=== PATIENT | male | born 1960 | race African-American/Black ===

== ENCOUNTER 2018-09-01 11:41 | Inpatient (IN) | payer MEDICARE ==
[~2018-09-01] VITALS: Ht 177.8 cm; Wt 78.5 kg
[2018-09-01] MEDS ORDERED: MORPHINE SULFATE 4 MG/ML CPJ (NOT FOR IM USE) IV STA (12:03)
[2018-09-01] MEDS ORDERED: ONDANSETRON HCL 4MG/2ML INJ IV STA (12:03)
[2018-09-01 12:30] LABS: BASOPHILS % 0.3 % (0.0-2.0); EOSINOPHILS % 0.1 % (0.0-5.0); HEMATOCRIT. 46.1 % (42.0-52.0); HEMOGLOBIN. 15.4 g/dL (14.0-18.0); LYMPHOCYTES % 22.8 % (20.0-50.0); MEAN CORPUSCULAR HEMOGLOBIN 27.3 pg (28.0-32.0); MEAN PLATELET VOLUME 8.9 fl (7.4-10.4); MONOCYTES % 12.7 % (2.0-8.0); NEUTROPHILS % 64.1 % (40.0-76.0); PLATELET 222 x1000/uL (130-400); RED BLOOD CELL COUNT 5.62 mill/uL (4.7-6.1); RED CELL DISTRIBUTION WIDTH 15.8 % (11.6-14.6)
[2018-09-01 12:37] LABS: CHLORIDE 95 mEq/L (98-107)
[2018-09-01 12:38] LABS: PROTHROMBIN TIME 10.6 sec (9.6-11.0)
[2018-09-01] MEDS ORDERED: PANTOPRAZOLE SODIUM 40 MG/VIAL IV ONE (14:00)
[2018-09-01] MEDS ORDERED: SODIUM CHLORIDE 0.9% 1,000 ML IV ONE (16:03)
[2018-09-01] MEDS ORDERED: DIATR MEGLU/DIATRIZOATE SOLN 30ML ONE (17:13)
[2018-09-01] MEDS ORDERED: DOCUSATE SODIUM 100MG CAPSULE PO PRN (17:30)
[2018-09-01] MEDS ORDERED: DIPHENHYDRAMINE 50MG/ML VIAL IV PRN (17:30)
[2018-09-01] MEDS ORDERED: IPRATROPIUM/ALBUTEROL 0.5-3(2.5)MG/3ML NEB INH PRN (17:30)
[2018-09-01] MEDS ORDERED: ACETAMINOPHEN 325MG TABLET PO PRN (17:30)
[2018-09-01] MEDS ORDERED: GUAIFENESIN 200MG/10ML SUGAR FREE UDC PO PRN (17:30)
[2018-09-01] MEDS ORDERED: HYDROMORPHONE HCL/PF 2MG/ML CPJ IV PRN (17:30)
[2018-09-01] MEDS ORDERED: CLONIDINE 0.1MG TABLET PO PRN (17:30)
[2018-09-01] MEDS ORDERED: MAGNESIUM/ALUMINUM HYDROXIDE/SIMETHICONE 30ML UDC PO PRN (17:30)
[2018-09-01] MEDS ORDERED: ONDANSETRON HCL 4MG/2ML INJ IV PRN (17:30)
[2018-09-01 17:41] LABS: PHOSPHORUS 3.9 mg/dL (2.5-4.9)
[2018-09-01] MEDS ORDERED: IOHEXOL-300 100 ML BOTTLE ONE (19:23)
[2018-09-01 22:00] VITALS: BP 143/99
[2018-09-02] VITALS: BP 145/102
[2018-09-02] MEDS: SODIUM CHLORIDE 0.9% 1,000 ML IV SCH ×3 (00:03→17:10)
[2018-09-02] MEDS ORDERED: DEXTROSE 50% WATER 50ML SYRINGE IV PRN (01:15)
[2018-09-02 02:18] LABS: CREATINE KINASE MB FRACTION 4.7 ng/mL (0.5-3.6)
[2018-09-02 04:00] VITALS: BP 132/86
[2018-09-02 06:13] LABS: BASOPHILS % 0.4 % (0.0-2.0); EOSINOPHILS % 0.3 % (0.0-5.0); HEMATOCRIT. 45.2 % (42.0-52.0); HEMOGLOBIN. 14.9 g/dL (14.0-18.0); LYMPHOCYTES % 20.2 % (20.0-50.0); MEAN CORPUSCULAR HEMOGLOBIN 27.2 pg (28.0-32.0); MEAN CORPUSCULAR VOLUME 82.4 fL (80.0-94.0); MEAN PLATELET VOLUME 9.4 fl (7.4-10.4); MONOCYTES % 12.4 % (2.0-8.0); NEUTROPHILS % 66.7 % (40.0-76.0); PLATELET 189 x1000/uL (130-400); RED BLOOD CELL COUNT 5.48 mill/uL (4.7-6.1)
[2018-09-02 06:25] LABS: CHLORIDE 96 mEq/L (98-107)
[2018-09-02 06:32] LABS: LDL CHOLESTEROL 119 mg/dL (5-100)
[2018-09-02 06:33] LABS: CREATINE KINASE 379 IU/L (39-308); HDL CHOLESTEROL 40 mg/dL (40-59)
[2018-09-02 06:36] LABS: CREATINE KINASE MB FRACTION 3.9 ng/mL (0.5-3.6)
[2018-09-02] MEDS ORDERED: BUPIVACAINE HCL/PF 0.5% (5MG/ML) 10ML ONE (07:14)
[2018-09-02] MEDS: INSULIN LISPRO 100 UNITS/ML SUBCUT SCH ×4 (07:40→21:00)
[2018-09-02] MEDS: BLOOD SUGAR DIAGNOSTIC STRIP TEST SCH ×4 (07:50→21:00)
[2018-09-02] MEDS ORDERED: ROCURONIUM BROMIDE 10MG/ML VIAL 5ML IV ONE (07:55)
[2018-09-02] MEDS ORDERED: SUCCINYLCHOLINE CHLORIDE 200MG/10ML IV ONE (07:55)
[2018-09-02] MEDS ORDERED: FENTANYL CITRATE/PF 50MCG/ML 2ML VIAL ONE (07:55)
[2018-09-02] MEDS ORDERED: MIDAZOLAM HCL 2 MG/2 ML VIAL ONE (07:55)
[2018-09-02] MEDS ORDERED: PROPOFOL 200MG/20ML VIAL IV ONE (07:55)
[2018-09-02] MEDS ORDERED: LIDOCAINE HCL/PF 1% 10 MG/ML 5ML VIAL ONE (07:56)
[2018-09-02] MEDS ORDERED: SODIUM CHLORIDE 0.9% 10ML VIAL ONE (07:56)
[2018-09-02] MEDS ORDERED: EPHEDRINE SULFATE 50MG/ML VIAL ONE (07:56)
[2018-09-02 09:16] LABS: *AMPHETAMINES SCREEN URINE PRESUMTIVE POSITIVE (NEGATIVE); *BARBITURATES SCREEN URINE NEGATIVE (NEGATIVE); *BENZODIAZEPINES SCREEN URINE NEGATIVE (NEGATIVE); *COCAINE SCREEN URINE NEGATIVE (NEGATIVE)
[2018-09-02 09:17] LABS: METHADONE URINE SCREEN NEGATIVE (NEGATIVE); OPIATES URINE SCREEN PRESUMTIVE POSITIVE (NEGATIVE); PHENCYCLIDINE URINE SCREEN NEGATIVE (NEGATIVE)
[2018-09-02 09:18] LABS: CANNABINOID URINE SCREEN NEGATIVE (NEGATIVE)
[2018-09-02] MEDS ORDERED: ONDANSETRON HCL 4MG/2ML INJ IV PRN (10:00)
[2018-09-02] MEDS ORDERED: MORPHINE SULFATE 2 MG/ML CPJ (NOT FOR IM USE) IV PRN (10:00)
[2018-09-02] MEDS ORDERED: ESMOLOL HCL 10MG/ML 10ML VIAL IV ONE (10:15)
[2018-09-02] MEDS ORDERED: PHENYLEPHRINE HCL 10 MG/ML 1ML (IV VIAL) IV ONE (10:20)
[2018-09-02] MEDS ORDERED: DEXAMETHASONE 4MG/ML 1ML VIAL ONE (10:39)
[2018-09-02] MEDS ORDERED: BUPIVACAINE HCL 0.5% 175 ML in ON-Q PM013 DRUG DELIV DEVICE 1 EA IR SCH (10:45)
[2018-09-02] MEDS ORDERED: NEOSTIGMINE METHYLSULFATE 1MG/ML 10 ML VIAL ONE (10:47)
[2018-09-02] MEDS ORDERED: GLYCOPYRROLATE 0.2 MG/ML 2ML VIAL ONE ×2 (10:47→10:59)
[2018-09-02] MEDS ORDERED: ON Q PUMP IR SCH (11:00)
[2018-09-02] MEDS ORDERED: BUPIVACAINE HCL 0.25% IR SCH (11:00)
[2018-09-02] MEDS ORDERED: ONDANSETRON HCL 4MG/2ML INJ ONE (11:01)
[2018-09-02] MEDS ORDERED: BUPIVACAINE HCL 0.5% 175 ML in ON-Q PUMP (PM013=P270X2) IR SCH (11:15)
[2018-09-02] MEDS ORDERED: FLUMAZENIL 0.1 MG/ML 5ML VIAL IV ONE (11:17)
[2018-09-02] MEDS ORDERED: HYDROMORPHONE HCL/PF 2MG/ML CPJ IV PRN (11:45)
[2018-09-02] MEDS ORDERED: MORPHINE PCA 50MG/50ML IV PRN (11:47)
[2018-09-02] MEDS ORDERED: DIPHENHYDRAMINE INJ IV PRN (12:00)
[2018-09-02] MEDS ORDERED: NALOXONE INJ IV PRN (12:00)
[2018-09-02] MEDS ORDERED: ONDANSETRON INJ IV PRN (12:00)
[2018-09-02] MEDS: METRONIDAZOLE 500 MG PREMIX 100 ML IV SCH ×2 (13:35→22:13)
[2018-09-02] MEDS: DEXT 5%/0.45% NACL KCL 20MEQ/L 1,000 ML IV SCH ×2 (16:44→22:13)
[2018-09-02] MEDS: CEFAZOLIN 1000MG PREMIX 50 ML IV SCH ×2 (16:45→22:13)
[2018-09-02 17:15] VITALS: BP 122/79
[2018-09-02 20:01] VITALS: BP 122/76
[2018-09-02] MEDS: FAMOTIDINE 20MG/2ML VIAL IV SCH (22:12)
[2018-09-03] VITALS: BP 125/81
[2018-09-03 04:00] VITALS: BP 108/70
[2018-09-03] MEDS: METRONIDAZOLE 500 MG PREMIX 100 ML IV SCH (05:52)
[2018-09-03] MEDS: CEFAZOLIN 1000MG PREMIX 50 ML IV SCH ×2 (05:52→13:01)
[2018-09-03] MEDS: SODIUM CHLORIDE 0.9% 1,000 ML IV SCH ×2 (05:53→19:20)
[2018-09-03] MEDS: BLOOD SUGAR DIAGNOSTIC STRIP TEST SCH ×4 (06:08→21:54)
[2018-09-03] MEDS: INSULIN LISPRO 100 UNITS/ML SUBCUT SCH ×4 (07:34→21:00)
[2018-09-03 07:40] LABS: CHLORIDE 98 mEq/L (98-107)
[2018-09-03 07:49] LABS: BASOPHILS % 0.1 % (0.0-2.0); HEMATOCRIT. 36.1 % (42.0-52.0); HEMOGLOBIN. 12.1 g/dL (14.0-18.0); LYMPHOCYTES % 13.8 % (20.0-50.0); MEAN CORPUSCULAR HEMOGLOBIN 27.5 pg (28.0-32.0); MEAN CORPUSCULAR VOLUME 82.3 fL (80.0-94.0); MEAN PLATELET VOLUME 9.4 fl (7.4-10.4); MONOCYTES % 12.8 % (2.0-8.0); NEUTROPHILS % 73.3 % (40.0-76.0); PLATELET 179 x1000/uL (130-400); RED BLOOD CELL COUNT 4.39 mill/uL (4.7-6.1); RED CELL DISTRIBUTION WIDTH 15.2 % (11.6-14.6)
[2018-09-03 08:00] VITALS: BP 120/78
[2018-09-03] MEDS: FAMOTIDINE 20MG/2ML VIAL IV SCH ×2 (08:51→21:52)
[2018-09-03 12:00] VITALS: BP 122/84
[2018-09-03 16:00] VITALS: BP 120/84
[2018-09-03 20:00] VITALS: BP 113/80
[2018-09-03] MEDS: DEXT 5%/0.45% NACL KCL 20MEQ/L 1,000 ML IV SCH (21:53)
[2018-09-04] VITALS: BP 119/80
[2018-09-04 04:00] VITALS: BP 112/71
[2018-09-04] MEDS: DEXT 5%/0.45% NACL KCL 20MEQ/L 1,000 ML IV SCH ×2 (06:32→17:15)
[2018-09-04] MEDS: INSULIN LISPRO 100 UNITS/ML SUBCUT SCH ×4 (07:40→20:57)
[2018-09-04] MEDS: BLOOD SUGAR DIAGNOSTIC STRIP TEST SCH ×4 (07:45→20:38)
[2018-09-04 07:50] LABS: BASOPHILS % 0.2 % (0.0-2.0); EOSINOPHILS % 0.7 % (0.0-5.0); HEMATOCRIT. 35.3 % (42.0-52.0); HEMOGLOBIN. 11.8 g/dL (14.0-18.0); LYMPHOCYTES % 23.3 % (20.0-50.0); MEAN CORPUSCULAR HEMOGLOBIN 27.7 pg (28.0-32.0); MEAN CORPUSCULAR VOLUME 83.1 fL (80.0-94.0); MEAN PLATELET VOLUME 9.4 fl (7.4-10.4); MONOCYTES % 11.5 % (2.0-8.0); NEUTROPHILS % 64.3 % (40.0-76.0); PLATELET 163 x1000/uL (130-400); RED BLOOD CELL COUNT 4.25 mill/uL (4.7-6.1); RED CELL DISTRIBUTION WIDTH 15.4 % (11.6-14.6)
[2018-09-04] MEDS: SODIUM CHLORIDE 0.9% 1,000 ML IV SCH ×2 (07:50→20:20)
[2018-09-04 07:58] LABS: CHLORIDE 99 mEq/L (98-107)
[2018-09-04 08:00] VITALS: BP 119/79
[2018-09-04] MEDS: FAMOTIDINE 20MG/2ML VIAL IV SCH ×2 (08:48→20:25)
[2018-09-04 12:00] VITALS: BP 111/80
[2018-09-04 16:00] VITALS: BP 128/90
[2018-09-04 20:00] VITALS: BP 131/88
[2018-09-04] MEDS: HYDROCODONE/ACETAMINOPHEN 5/325MG TABLET PO PRN (20:25)
[2018-09-05] VITALS: BP 142/93
[2018-09-05] MEDS: DEXT 5%/0.45% NACL KCL 20MEQ/L 1,000 ML IV SCH ×2 (00:43→11:16)
[2018-09-05 03:30] VITALS: BP 127/82
[2018-09-05] MEDS: HYDROCODONE/ACETAMINOPHEN 5/325MG TABLET PO PRN ×4 (03:41→22:45)
[2018-09-05] MEDS: BLOOD SUGAR DIAGNOSTIC STRIP TEST SCH ×4 (07:03→21:35)
[2018-09-05 07:29] LABS: BASOPHILS % 0.4 % (0.0-2.0); EOSINOPHILS % 1.2 % (0.0-5.0); HEMATOCRIT. 39.2 % (42.0-52.0); HEMOGLOBIN. 13.1 g/dL (14.0-18.0); MEAN CORPUSCULAR HEMOGLOBIN 27.8 pg (28.0-32.0); MEAN PLATELET VOLUME 9.4 fl (7.4-10.4); MONOCYTES % 10.8 % (2.0-8.0); NEUTROPHILS % 68.6 % (40.0-76.0); PLATELET 184 x1000/uL (130-400); RED BLOOD CELL COUNT 4.72 mill/uL (4.7-6.1); RED CELL DISTRIBUTION WIDTH 15.5 % (11.6-14.6)
[2018-09-05 07:39] LABS: CHLORIDE 101 mEq/L (98-107)
[2018-09-05] MEDS: INSULIN LISPRO 100 UNITS/ML SUBCUT SCH ×4 (07:40→21:35)
[2018-09-05 08:00] VITALS: BP 122/87
[2018-09-05] MEDS: SODIUM CHLORIDE 0.9% 1,000 ML IV SCH ×2 (08:50→21:20)
[2018-09-05] MEDS: FAMOTIDINE 20MG/2ML VIAL IV SCH ×2 (09:23→21:41)
[2018-09-05 12:00] VITALS: BP 149/98
[2018-09-05 16:00] VITALS: BP 138/96
[2018-09-05 20:00] VITALS: BP 119/89
[2018-09-06] VITALS: BP 118/83
[2018-09-06] MEDS: HYDROCODONE/ACETAMINOPHEN 5/325MG TABLET PO PRN ×4 (03:11→20:53)
[2018-09-06 04:00] VITALS: BP 122/89
[2018-09-06] MEDS: BLOOD SUGAR DIAGNOSTIC STRIP TEST SCH ×4 (06:18→20:54)
[2018-09-06] MEDS: INSULIN LISPRO 100 UNITS/ML SUBCUT SCH ×4 (07:33→21:00)
[2018-09-06 08:00] VITALS: BP 122/87
[2018-09-06] MEDS: FAMOTIDINE 20MG/2ML VIAL IV SCH ×2 (09:15→20:54)
[2018-09-06] MEDS: SODIUM CHLORIDE 0.9% 1,000 ML IV SCH (11:50)
[2018-09-06 12:00] VITALS: BP 131/96
[2018-09-06 16:00] VITALS: BP 128/88
[2018-09-06 20:00] VITALS: BP 119/82
[2018-09-07] VITALS: BP 134/84
[2018-09-07] MEDS: SODIUM CHLORIDE 0.9% 1,000 ML IV SCH (00:46)
[2018-09-07] MEDS: HYDROCODONE/ACETAMINOPHEN 5/325MG TABLET PO PRN ×2 (02:16→09:02)
[2018-09-07 04:00] VITALS: BP 140/60
[2018-09-07] MEDS: BLOOD SUGAR DIAGNOSTIC STRIP TEST SCH ×2 (06:35→12:39)
[2018-09-07] MEDS: INSULIN LISPRO 100 UNITS/ML SUBCUT SCH ×2 (06:43→12:39)
[2018-09-07 07:05] LABS: BASOPHILS % 0.5 % (0.0-2.0); EOSINOPHILS % 4.8 % (0.0-5.0); HEMATOCRIT. 40.2 % (42.0-52.0); HEMOGLOBIN. 13.4 g/dL (14.0-18.0); LYMPHOCYTES % 22.8 % (20.0-50.0); MEAN CORPUSCULAR HEMOGLOBIN 27.6 pg (28.0-32.0); MEAN CORPUSCULAR VOLUME 82.9 fL (80.0-94.0); MEAN PLATELET VOLUME 9.2 fl (7.4-10.4); MONOCYTES % 12.7 % (2.0-8.0); NEUTROPHILS % 59.2 % (40.0-76.0); PLATELET 215 x1000/uL (130-400); RED BLOOD CELL COUNT 4.84 mill/uL (4.7-6.1); RED CELL DISTRIBUTION WIDTH 15.3 % (11.6-14.6)
[2018-09-07 07:46] LABS: CHLORIDE 103 mEq/L (98-107)
[2018-09-07] MEDS: FAMOTIDINE 20MG/2ML VIAL IV SCH (09:03)
[2018-09-07 12:19] VITALS: BP 136/99
== END 2018-09-07 13:52 | disposition home or self-care (01) | DRG 330 ==
LOC: ER 12:55 → 8WST 15:57 → EDBEDREQ 19:48 → EDBEDREQTM 19:48 → ENRESERV 20:52
PROVIDERS: ADMIT Internal Medicine; ATTEND Internal Medicine
PROC: 0DS80ZZ Reposition Small Intestine, Open Approach (ICD-10-PCS; principal; 2018-09-02)
DX: K56.1 Intussusception (principal); K92.0 Hematemesis; E87.1 Hypo-osmolality and hyponatremia; K31.89 Other diseases of stomach and duodenum; K66.0 Peritoneal adhesions (postprocedural) (postinfection); F19.90 Other psychoactive substance use, unspecified, uncomplicated; E11.65 Type 2 diabetes mellitus with hyperglycemia; Z85.07 Personal history of malignant neoplasm of pancreas; Z90.411 Acquired partial absence of pancreas; Z90.49 Acquired absence of other specified parts of digestive tract; Z59.0 Homelessness
CPT/HCPCS: 36415; 74176; 74177; 80048; 80061; 80305; 82550; 82553; 82962; 83036; 83735; 84100; 84443; 86850; 86900; 93005; 93970; 96374; 96375; 97116; 97162; 99285; C9113; J0330; J0690; J1100; J2250; J2270; J2370; J2405; J2704; J2710; J3010; J3490; J7030; Q9963; Q9967

== ENCOUNTER 2019-05-27 12:19 | Emergency (ER) | payer MEDICARE, MEDICAID ==
[~2019-05-27] VITALS: Ht 177.8 cm; Wt 80.0 kg
[2019-05-27] MEDS ORDERED: POLYETHYLENE GLYCOL 3350 (17GM) 1 DOSE PACK PO ONE (13:30)
[2019-05-27 14:02] VITALS: BP 161/91
== END 2019-05-27 14:03 | disposition home or self-care (01) ==
LOC: ER 12:19
DX: K59.00 Constipation, unspecified (principal); M25.561 Pain in right knee
CPT/HCPCS: 99281

== ENCOUNTER 2020-12-08 08:58 | Emergency (ER) | payer BC, MEDICAID ==
[~2020-12-08] VITALS: Ht 170.2 cm; Wt 68.0 kg
[2020-12-08 09:00] VITALS: BP 148/103
[2020-12-08] MEDS ORDERED: DEXAMETHASONE 4MG TABLET PO ONE (13:30)
== END 2020-12-08 13:29 | disposition left against medical advice (07) ==
LOC: ER 08:58
DX: Z53.21 Procedure and treatment not carried out due to patient leaving prior to being seen by health care provider (principal)
CPT/HCPCS: 93005

== ENCOUNTER 2020-12-11 14:21 | Inpatient (IN) | payer BC, MEDICAID ==
[~2020-12-11] VITALS: Ht 177.8 cm; Wt 71.7 kg
[2020-12-11] MEDS ORDERED: ASPIRIN 325MG TABLET PO ONE (16:30)
[2020-12-11] MEDS ORDERED: SODIUM CHLORIDE 0.9% 1,000 ML IV ONE ×2 (16:45→17:30)
[2020-12-11 17:07] LABS: HEMATOCRIT. 46.5 % (42.0-52.0); HEMOGLOBIN. 15.4 g/dL (14.0-18.0); MEAN CORPUSCULAR VOLUME 84.4 fL (80.0-94.0); MEAN PLATELET VOLUME 9.3 fl (7.4-10.4); PLATELET 203 x1000/uL (130-400); RED BLOOD CELL COUNT 5.51 mill/uL (4.7-6.1)
[2020-12-11] MEDS ORDERED: AZITHROMYCIN 500MG/250ML 250 ML IV ONE (17:30)
[2020-12-11] MEDS ORDERED: CEFTRIAXONE 2 G PREMIX 50 ML IV ONE (17:30)
[2020-12-11 17:54] LABS: PLATELET ESTIMATE NORMAL
[2020-12-11 18:03] LABS: CLARITY URINE TURBID (CLEAR); COLOR URINE DARK YELLOW (YELLOW); KETONES URINE TRACE (NEGATIVE); LEUKOCYTE ESTERASE URINE 1+ (NEGATIVE); NITRITE URINE NEGATIVE (NEGATIVE); OCCULT BLOOD URINE 3+ (NEGATIVE); PROTEIN URINE 2+ (NEGATIVE); SPECIFIC GRAVITY URINE 1.021 (1.005-1.030)
[2020-12-11 18:14] LABS: *AMPHETAMINES SCREEN URINE PRESUMTIVE POSITIVE (NEGATIVE); *BARBITURATES SCREEN URINE NEGATIVE (NEGATIVE); *BENZODIAZEPINES SCREEN URINE NEGATIVE (NEGATIVE); *COCAINE SCREEN URINE PRESUMTIVE POSITIVE (NEGATIVE); METHADONE URINE SCREEN NEGATIVE (NEGATIVE); OPIATES URINE SCREEN NEGATIVE (NEGATIVE)
[2020-12-11 18:15] LABS: CANNABINOID URINE SCREEN NEGATIVE (NEGATIVE); PHENCYCLIDINE URINE SCREEN NEGATIVE (NEGATIVE)
[2020-12-11 18:21] LABS: CHLORIDE 98 mEq/L (98-107)
[2020-12-11 18:24] LABS: ETHANOL BLOOD < 10 mg/dL
[2020-12-11 19:25] LABS: CREATINE KINASE 30641 IU/L (39-308)
[2020-12-11] MEDS ORDERED: SODIUM POLYSTYRENE SULFONATE 15 G/60 ML BOT PO NR (23:00)
[2020-12-11] MEDS ORDERED: IOHEXOL-300 100 ML BOTTLE ONE (23:04)
[2020-12-12] VITALS: BP 120/80
[2020-12-12] MEDS ORDERED: IPRATROPIUM/ALBUTEROL 0.5-3(2.5)MG/3ML NEB HHN PRN (01:15)
[2020-12-12] MEDS ORDERED: ACETAMINOPHEN 650MG/20.3ML UDC PO PRN (01:15)
[2020-12-12] MEDS: METHYLPREDNISOLONE SOD SUCC 40 MG/ML VIAL IV SCH ×3 (02:19→13:09)
[2020-12-12] MEDS: DEXT 5%/0.45% NACL 1000ML 1,000 ML IV SCH ×2 (02:20→13:09)
[2020-12-12 04:00] VITALS: BP 114/80
[2020-12-12 04:24] LABS: CREATINE KINASE MB FRACTION 322.4 ng/mL (0.5-3.6)
[2020-12-12 05:09] LABS: HEMATOCRIT. 38.8 % (42.0-52.0); HEMOGLOBIN. 13.2 g/dL (14.0-18.0); MEAN CORPUSCULAR HEMOGLOBIN 28.5 pg (28.0-32.0); MEAN CORPUSCULAR VOLUME 83.8 fL (80.0-94.0); MEAN PLATELET VOLUME 9.3 fl (7.4-10.4); PLATELET 157 x1000/uL (130-400); RED BLOOD CELL COUNT 4.63 mill/uL (4.7-6.1); RED CELL DISTRIBUTION WIDTH 15.3 % (11.6-14.6)
[2020-12-12 05:16] LABS: CHLORIDE 97 mEq/L (98-107)
[2020-12-12 05:26] LABS: HDL CHOLESTEROL 61 mg/dL (40-59); LDL CHOLESTEROL 47 mg/dL (5-100)
[2020-12-12 05:28] LABS: CREATINE KINASE MB FRACTION 254.1 ng/mL (0.5-3.6)
[2020-12-12 08:00] VITALS: BP 123/71
[2020-12-12] MEDS: ASPIRIN 81MG TABLET PO SCH (08:52)
[2020-12-12] MEDS: PANTOPRAZOLE 40MG DR TABLET PO SCH (08:52)
[2020-12-12] MEDS: ENOXAPARIN 40MG/0.4ML SYR SUBCUT SCH (08:53)
[2020-12-12 09:48] LABS: CREATINE KINASE MB FRACTION 185.4 ng/mL (0.5-3.6)
[2020-12-12 11:49] LABS: CREATINE KINASE 16327 IU/L (39-308)
[2020-12-12 12:00] VITALS: BP 136/108
[2020-12-12] MEDS ORDERED: PNEUMOCOCCAL 23-VAL P-SAC VAC 0.5 ML IM ONE (12:00)
[2020-12-12] MEDS ORDERED: INFLUENZA VACCINE 05/PF 0.5 ML SYRINGE IM ONE (12:00)
[2020-12-12] MEDS ORDERED: LACTULOSE 20G/30ML UDC PO NR (15:30)
[2020-12-12] MEDS ORDERED: BISACODYL 10MG SUPP PR PRN (15:30)
[2020-12-12] MEDS ORDERED: NALOXONE HCL 0.4MG/ML VIAL IV PRN (15:45)
[2020-12-12 16:00] VITALS: BP 131/89
[2020-12-12] MEDS: CEFTRIAXONE 1,000 MG in DEXTROSE 5% WATER 50 ML IV SCH (17:01)
[2020-12-12] MEDS: AZITHROMYCIN 500 MG in DEXT 5% WATER 250 ML IV SCH (17:01)
[2020-12-12 17:15] LABS: PLATELET ESTIMATE NORMAL
[2020-12-12 17:54] LABS: CREATINE KINASE MB FRACTION 110.3 ng/mL (0.5-3.6)
[2020-12-12 18:32] LABS: BG CARBOXYHEMOGLOBIN 2.1 % (0.5-1.5); BG DEOXYHEMOGLOBIN 5.6 % (0.0-5.0); BG FRACTION INSPIRED OXYGEN 21; BG HCO3 ACT 23.5 mmol/L (22.0-26.0); BG METHEMOGLOBIN 0.3 % (0.0-1.5); BG OXYGEN SATURATION 94.3 % (92.0-98.5); BG PCO2 34.8 mmHg (35.0-45.0); BG PH 7.448 (7.350-7.450); BG PO2 69.4 mmHg (75.0-100.0); BG SAMPLE SITE LEFT RADIAL; BG TOTAL HEMOGLOBIN 12.8 g/dL (12.0-18.0); BG VENT MODE ROOM AIR
[2020-12-12] MEDS: DOCUSATE SODIUM 100MG CAPSULE PO SCH (18:34)
[2020-12-12 20:00] VITALS: BP 114/82
[2020-12-12] MEDS: HYDROCODONE/ACETAMINOPHEN 5/325MG TABLET PO PRN (20:15)
[2020-12-13] VITALS: BP 124/84
[2020-12-13 00:16] LABS: CREATINE KINASE MB FRACTION 82.5 ng/mL (0.5-3.6)
[2020-12-13] MEDS: HYDROCODONE/ACETAMINOPHEN 5/325MG TABLET PO PRN ×4 (03:24→21:00)
[2020-12-13 04:00] VITALS: BP 121/73
[2020-12-13] MEDS: DEXT 5%/0.45% NACL 1000ML 1,000 ML IV SCH ×3 (05:25→17:01)
[2020-12-13 06:09] LABS: HEMATOCRIT. 37.3 % (42.0-52.0); HEMOGLOBIN. 12.4 g/dL (14.0-18.0); MEAN CORPUSCULAR HEMOGLOBIN 27.8 pg (28.0-32.0); MEAN CORPUSCULAR VOLUME 83.6 fL (80.0-94.0); MEAN PLATELET VOLUME 9.9 fl (7.4-10.4); PLATELET 164 x1000/uL (130-400); RED BLOOD CELL COUNT 4.46 mill/uL (4.7-6.1); RED CELL DISTRIBUTION WIDTH 15.4 % (11.6-14.6)
[2020-12-13] MEDS: PANTOPRAZOLE 40MG DR TABLET PO SCH (06:21)
[2020-12-13 06:28] LABS: CHLORIDE 100 mEq/L (98-107)
[2020-12-13 07:03] LABS: CREATINE KINASE MB FRACTION 67.6 ng/mL (0.5-3.6)
[2020-12-13 07:27] LABS: CREATINE KINASE 10164 IU/L (39-308)
[2020-12-13 08:00] VITALS: BP 143/89
[2020-12-13] MEDS: ENOXAPARIN 40MG/0.4ML SYR SUBCUT SCH (08:23)
[2020-12-13] MEDS: DOCUSATE SODIUM 100MG CAPSULE PO SCH ×2 (08:24→16:12)
[2020-12-13] MEDS: METHYLPREDNISOLONE SOD SUCC 40 MG/ML VIAL IV SCH (08:24)
[2020-12-13] MEDS: ASPIRIN 81MG TABLET PO SCH (08:24)
[2020-12-13 12:00] VITALS: BP 140/87
[2020-12-13 16:00] VITALS: BP 129/78
[2020-12-13] MEDS: AZITHROMYCIN 500 MG in DEXT 5% WATER 250 ML IV SCH (16:06)
[2020-12-13] MEDS: CEFTRIAXONE 1,000 MG in DEXTROSE 5% WATER 50 ML IV SCH (18:03)
[2020-12-13 18:54] LABS: PLATELET ESTIMATE NORMAL
[2020-12-13 20:00] VITALS: BP 140/89
[2020-12-14] VITALS: BP 126/80
[2020-12-14 04:00] VITALS: BP 143/99
[2020-12-14] MEDS: MORPHINE SULFATE 2 MG/ML CPJ (NOT FOR IM USE) IV PRN ×2 (05:09→16:47)
[2020-12-14] MEDS: PANTOPRAZOLE 40MG DR TABLET PO SCH (06:21)
[2020-12-14 08:00] VITALS: BP 164/115
[2020-12-14 08:12] LABS: HEMATOCRIT. 38.4 % (42.0-52.0); HEMOGLOBIN. 12.6 g/dL (14.0-18.0); MEAN CORPUSCULAR HEMOGLOBIN 27.5 pg (28.0-32.0); MEAN CORPUSCULAR VOLUME 83.9 fL (80.0-94.0); MEAN PLATELET VOLUME 9.1 fl (7.4-10.4); PLATELET 187 x1000/uL (130-400); RED BLOOD CELL COUNT 4.58 mill/uL (4.7-6.1); RED CELL DISTRIBUTION WIDTH 15.8 % (11.6-14.6)
[2020-12-14 08:37] LABS: CHLORIDE 103 mEq/L (98-107)
[2020-12-14] MEDS: DOCUSATE SODIUM 100MG CAPSULE PO SCH ×2 (08:43→18:32)
[2020-12-14] MEDS: ASPIRIN 81MG TABLET PO SCH (08:43)
[2020-12-14] MEDS: METHYLPREDNISOLONE SOD SUCC 40 MG/ML VIAL IV SCH (08:43)
[2020-12-14] MEDS: ENOXAPARIN 40MG/0.4ML SYR SUBCUT SCH (08:43)
[2020-12-14] MEDS ORDERED: HYDRALAZINE 20MG/ML VIAL IV NR (09:30)
[2020-12-14 12:00] VITALS: BP 129/94
[2020-12-14 12:39] LABS: CREATINE KINASE MB FRACTION 31.1 ng/mL (0.5-3.6)
[2020-12-14] MEDS: DEXT 5%/0.45% NACL 1000ML 1,000 ML IV SCH ×2 (13:40→22:31)
[2020-12-14 16:00] VITALS: BP 146/106
[2020-12-14] MEDS: AZITHROMYCIN 500 MG in DEXT 5% WATER 250 ML IV SCH (16:11)
[2020-12-14] MEDS: CEFTRIAXONE 1,000 MG in DEXTROSE 5% WATER 50 ML IV SCH (18:32)
[2020-12-14] MEDS: HYDROCODONE/ACETAMINOPHEN 5/325MG TABLET PO PRN (19:55)
[2020-12-14 20:00] VITALS: BP 162/113
[2020-12-14] MEDS ORDERED: CLONIDINE 0.1MG TABLET PO PRN (20:45)
[2020-12-15] VITALS: BP 146/88
[2020-12-15 04:00] VITALS: BP 130/55
[2020-12-15 05:22] LABS: PLATELET ESTIMATE NORMAL
[2020-12-15] MEDS: PANTOPRAZOLE 40MG DR TABLET PO SCH (05:40)
[2020-12-15 07:26] LABS: CHLORIDE 102 mEq/L (98-107)
[2020-12-15 07:37] LABS: HEMATOCRIT. 42.1 % (42.0-52.0); HEMOGLOBIN. 14.4 g/dL (14.0-18.0); MEAN CORPUSCULAR HEMOGLOBIN 28.6 pg (28.0-32.0); MEAN CORPUSCULAR VOLUME 83.7 fL (80.0-94.0); MEAN PLATELET VOLUME 9.6 fl (7.4-10.4); PLATELET 205 x1000/uL (130-400); RED BLOOD CELL COUNT 5.04 mill/uL (4.7-6.1); RED CELL DISTRIBUTION WIDTH 15.4 % (11.6-14.6)
[2020-12-15 08:00] VITALS: BP 151/118
[2020-12-15] MEDS: DEXT 5%/0.45% NACL 1000ML 1,000 ML IV SCH (09:52)
[2020-12-15] MEDS: DOCUSATE SODIUM 100MG CAPSULE PO SCH ×2 (09:52→16:38)
[2020-12-15] MEDS: ASPIRIN 81MG TABLET PO SCH (09:52)
[2020-12-15] MEDS: ENOXAPARIN 40MG/0.4ML SYR SUBCUT SCH (09:52)
[2020-12-15] MEDS: HYDROCODONE/ACETAMINOPHEN 5/325MG TABLET PO PRN ×3 (09:53→22:39)
[2020-12-15 10:47] LABS: PLATELET ESTIMATE NORMAL
[2020-12-15] MEDS: AMLODIPINE 5MG TABLET PO SCH ×2 (11:19→21:11)
[2020-12-15 12:00] VITALS: BP 138/100
[2020-12-15 16:00] VITALS: BP 134/103
[2020-12-15] MEDS: AZITHROMYCIN 500 MG in DEXT 5% WATER 250 ML IV SCH (16:35)
[2020-12-15] MEDS: CEFTRIAXONE 1,000 MG in DEXTROSE 5% WATER 50 ML IV SCH (18:07)
[2020-12-15 20:00] VITALS: BP 136/78
[2020-12-15] MEDS: MORPHINE SULFATE 2 MG/ML CPJ (NOT FOR IM USE) IV PRN (23:49)
[2020-12-16] VITALS: BP 131/88
[2020-12-16 04:00] VITALS: BP 130/80
[2020-12-16] MEDS: MORPHINE SULFATE 2 MG/ML CPJ (NOT FOR IM USE) IV PRN ×2 (04:30→09:48)
[2020-12-16] MEDS: PANTOPRAZOLE 40MG DR TABLET PO SCH (06:41)
[2020-12-16 08:00] VITALS: BP 120/77
[2020-12-16] MEDS: DOCUSATE SODIUM 100MG CAPSULE PO SCH (08:54)
[2020-12-16] MEDS: AMLODIPINE 5MG TABLET PO SCH (08:55)
[2020-12-16] MEDS: ASPIRIN 81MG TABLET PO SCH (08:55)
[2020-12-16] MEDS: ENOXAPARIN 40MG/0.4ML SYR SUBCUT SCH (08:55)
[2020-12-16 09:48] VITALS: BP 120/77
== END 2020-12-16 12:17 | disposition left against medical advice (07) | DRG 435 ==
LOC: ER 14:21 → 6WST 20:11 → EDBEDREQTM 20:15 → EDBEDREQ 20:15 → ENRESERV 21:33 → 7WST 12-12 06:16 → 7EST 12-12 14:57
PROVIDERS: ADMIT Internal Medicine; ATTEND Internal Medicine
DX: C25.9 Malignant neoplasm of pancreas, unspecified (principal); J18.9 Pneumonia, unspecified organism; N17.0 Acute kidney failure with tubular necrosis; C79.51 Secondary malignant neoplasm of bone; M62.82 Rhabdomyolysis; E87.1 Hypo-osmolality and hyponatremia; G93.40 Encephalopathy, unspecified; N39.0 Urinary tract infection, site not specified; D64.9 Anemia, unspecified; E87.5 Hyperkalemia; F10.10 Alcohol abuse, uncomplicated; F17.210 Nicotine dependence, cigarettes, uncomplicated; R06.03 Acute respiratory distress; Z53.29 Procedure and treatment not carried out because of patient's decision for other reasons; J98.2 Interstitial emphysema; K59.00 Constipation, unspecified; F14.10 Cocaine abuse, uncomplicated; R74.01 Elevation of levels of liver transaminase levels; Z20.822 Contact with and (suspected) exposure to COVID-19; I12.9 Hypertensive chronic kidney disease with stage 1 through stage 4 chronic kidney disease, or unspecified chronic kidney disease; N18.9 Chronic kidney disease, unspecified; Z85.07 Personal history of malignant neoplasm of pancreas; Z90.411 Acquired partial absence of pancreas; Z98.84 Bariatric surgery status
CPT/HCPCS: 36415; 36600; 71045; 71260; 73502; 74176; 74177; 76700; 80048; 80053; 80061; 80076; 80305; 80320; 81003; 82105; 82140; 82330; 82375; 82378; 82550; 82553; 82805; 83605; 83615; 83735; 83880; 84132; 84484; 85025; 85379; 86301; 87426; 90686; 90732; 93306; 93970; 97116; 97162; 99285; J0360; J0456; J0696; J1650; J2270; J2920; J7030; J7060; Q9967; U0003; U0005; G0480